=== PATIENT | female | born 1955 | race Caucasian/White ===

== ENCOUNTER → 2020-02-20 | Outpatient (CLI) | payer MEDICARE ==
[2020-02-20 13:01] LABS: INTERNATIONAL RATION (INR) 1.76; PROTHROMBIN TIME 20.6 SEC (11.4-15.4)
== END ==
LOC: OD 12:29
DX: I48.0 Paroxysmal atrial fibrillation (principal); Z79.01 Long term (current) use of anticoagulants
CPT/HCPCS: 36415; 85610